=== PATIENT | female | born 1985 | race Caucasian/White ===

== ENCOUNTER 2017-03-19 01:03 | Inpatient (IN) | payer MEDICAID ==
[~2017-03-19] VITALS: Ht 160 cm; Wt 24.1 kg
[2017-03-19 04:15] LABS: BASOPHIL % 0.2 % (0-2); PLATELET COUNT 310 x10^3mcL (130-400)
[2017-03-19 04:37] LABS: CALCIUM 7.6 mg/dL (8.5-10.1); CARBON DIOXIDE 22.1 mmol/L (21-32); CHLORIDE SERUM 110 mmol/L (98-107); CREATININE SERUM 0.3 mg/dL (0.6-1.0); GFR1 > 60 mL/min; GLUCOSE SERUM 112 mg/dL (74-106); POTASSIUM SERUM 3.6 mmol/L (3.5-5.1); SODIUM SERUM 140 mmol/L (136-145)
[2017-03-19 04:43] LABS: ALKALINE PHOSPHATASE 93 U/L (46-116); ALT/SGPT 19 U/L (14-59); AST/SGOT 17 U/L (15-37); BILIRUBIN TOTAL 0.3 mg/dL (0.20-1.00); RED CELL DISTRIBUTION WIDTH 24.1 % (11.5-14.5)
[2017-03-19 04:45] LABS: TOTAL PROTEIN, SERUM 5.5 g/dL (6.4-8.2)
[2017-03-19 05:00] LABS: rbc morphology (normal/abnorm) ABNORMAL (NORMAL)
[2017-03-19 08:07] LABS: CHOLESTEROL/HDL RATIO 2.7; MAGNESIUM 2.1 mg/dL (1.8-2.4); PHOSPHOROUS 3.8 mg/dL (2.5-4.9)
[2017-03-19 08:14] VITALS: BP 90/61
[2017-03-19 08:21] LABS: T3 TOTAL 1.18 ng/mL
[2017-03-19 08:38] LABS: FREE T4 0.73 ng/dL (0.76-1.46); FREE THYROXINE INDEX 1.7 ug/dL (1.4-4.5); T4(THYROXINE) 5.5 ug/dL (4.7-13.3)
[2017-03-19 13:05] LABS: microscopic required? NO
[2017-03-19 13:11] VITALS: BP 113/70
[2017-03-19 13:14] LABS: UA SPECIFIC GRAVITY <=1.005 (1.005-1.035); urine erythrocyte NEGATIVE (NEGATIVE)
[2017-03-19 17:06] VITALS: BP 91/53
[2017-03-19 18:01] LABS: AMPHETAMINE QUAL UR NONE DETECTED (NEG <=1000)
[2017-03-19 19:49] VITALS: BP 87/56
[2017-03-20 06:04] VITALS: BP 102/71
[2017-03-20 06:51] LABS: BASOPHIL % 0.4 % (0-2); PLATELET COUNT 289 x10^3mcL (130-400)
[2017-03-20 06:59] LABS: RED CELL DISTRIBUTION WIDTH 24.4 % (11.5-14.5)
[2017-03-20 07:00] LABS: rbc morphology (normal/abnorm) ABNORMAL (NORMAL)
[2017-03-20 07:07] LABS: CALCIUM 8.5 mg/dL (8.5-10.1); CARBON DIOXIDE 22.9 mmol/L (21-32); CHLORIDE SERUM 110 mmol/L (98-107); CREATININE SERUM 0.3 mg/dL (0.6-1.0); GFR1 > 60 mL/min; GLUCOSE SERUM 76 mg/dL (74-106); POTASSIUM SERUM 3.9 mmol/L (3.5-5.1); SODIUM SERUM 143 mmol/L (136-145)
[2017-03-20 09:00] VITALS: BP 87/57
[2017-03-20 10:33] VITALS: Ht 160 cm; Wt 24.1 kg
[2017-03-20 14:10] VITALS: BP 93/67
[2017-03-20 17:49] VITALS: BP 92/61
[2017-03-20 20:58] VITALS: BP 98/61
[2017-03-21 04:53] VITALS: BP 103/68
[2017-03-21 07:05] LABS: CALCIUM 7.5 mg/dL (8.5-10.1); CARBON DIOXIDE 24.5 mmol/L (21-32); CHLORIDE SERUM 109 mmol/L (98-107); CREATININE SERUM 0.3 mg/dL (0.6-1.0); GFR1 > 60 mL/min; GLUCOSE SERUM 75 mg/dL (74-106); POTASSIUM SERUM 3.8 mmol/L (3.5-5.1); SODIUM SERUM 141 mmol/L (136-145)
[2017-03-21 07:08] LABS: BASOPHIL % 0.5 % (0-2); PLATELET COUNT 248 x10^3mcL (130-400)
[2017-03-21 07:09] LABS: RED CELL DISTRIBUTION WIDTH 23.4 % (11.5-14.5)
[2017-03-21 07:10] LABS: rbc morphology (normal/abnorm) ABNORMAL (NORMAL)
[2017-03-21 10:15] VITALS: BP 79/52
[2017-03-21 12:00] VITALS: BP 93/65
[2017-03-21 18:29] VITALS: BP 98/64
[2017-03-21 21:17] VITALS: BP 104/68
[2017-03-22 05:32] VITALS: BP 93/64
[2017-03-22 07:32] LABS: BASOPHIL % 0.4 % (0-2); PLATELET COUNT 259 x10^3mcL (130-400)
[2017-03-22 07:33] LABS: RED CELL DISTRIBUTION WIDTH 23.9 % (11.5-14.5)
[2017-03-22 07:34] LABS: rbc morphology (normal/abnorm) ABNORMAL (NORMAL)
[2017-03-22 07:44] LABS: CALCIUM 8.2 mg/dL (8.5-10.1); CARBON DIOXIDE 23.3 mmol/L (21-32); CHLORIDE SERUM 107 mmol/L (98-107); CREATININE SERUM 0.2 mg/dL (0.6-1.0); GFR1 > 60 mL/min; GLUCOSE SERUM 85 mg/dL (74-106); MAGNESIUM 2.2 mg/dL (1.8-2.4); PHOSPHOROUS 3.6 mg/dL (2.5-4.9); POTASSIUM SERUM 3.5 mmol/L (3.5-5.1); SODIUM SERUM 138 mmol/L (136-145)
[2017-03-22 09:26] VITALS: BP 94/59
[2017-03-22 18:45] VITALS: BP 105/73
[2017-03-22 21:30] VITALS: BP 108/73
[2017-03-23 04:40] VITALS: BP 106/76
[2017-03-23 07:26] LABS: BASOPHIL % 0.4 % (0-2); PLATELET COUNT 248 x10^3mcL (130-400)
[2017-03-23 07:33] LABS: CALCIUM 8.1 mg/dL (8.5-10.1); CARBON DIOXIDE 25.2 mmol/L (21-32); CHLORIDE SERUM 109 mmol/L (98-107); CREATININE SERUM 0.3 mg/dL (0.6-1.0); GFR1 > 60 mL/min; POTASSIUM SERUM 3.4 mmol/L (3.5-5.1); SODIUM SERUM 144 mmol/L (136-145)
[2017-03-23 07:39] LABS: GLUCOSE SERUM 48 mg/dL (74-106)
[2017-03-23 08:35] LABS: RED CELL DISTRIBUTION WIDTH 23.6 % (11.5-14.5)
[2017-03-23 10:06] VITALS: BP 102/71
[2017-03-23 10:59] LABS: rbc morphology (normal/abnorm) ABNORMAL (NORMAL)
[2017-03-23 16:19] VITALS: BP 90/65
[2017-03-23 21:35] VITALS: BP 99/67
[2017-03-24 05:45] VITALS: BP 111/79
[2017-03-24 07:38] LABS: PLATELET COUNT 219 x10^3mcL (130-400)
[2017-03-24 07:39] LABS: RED CELL DISTRIBUTION WIDTH 24.1 % (11.5-14.5)
[2017-03-24 08:03] LABS: CHLORIDE SERUM 109 mmol/L (98-107); CREATININE SERUM 0.3 mg/dL (0.6-1.0); GFR1 > 60 mL/min; GLUCOSE SERUM 90 mg/dL (74-106); MAGNESIUM 2.2 mg/dL (1.8-2.4); PHOSPHOROUS 3.4 mg/dL (2.5-4.9); POTASSIUM SERUM 3.4 mmol/L (3.5-5.1); SODIUM SERUM 142 mmol/L (136-145)
[2017-03-24 08:27] LABS: CALCIUM 7.8 mg/dL (8.5-10.1)
[2017-03-24 09:49] VITALS: BP 112/73
[2017-03-24 11:07] LABS: BAND NEUTROPHIL 3 % (0-10); BASOPHIL 0 % (0-2); MONOCYTE 7 % (0-7); SEGMENTED NEUTROPHILS 58 % (37-75)
[2017-03-24 11:08] LABS: rbc morphology (normal/abnorm) ABNORMAL (NORMAL)
[2017-03-24] MEDS ORDERED: REM15 PO (13:26)
[2017-03-24] MEDS ORDERED: SERTRALINE50 M1 PO (13:26)
[2017-03-24] MEDS ORDERED: NORCO1 TA2 PO (13:30)
[2017-03-24] MEDS ORDERED: DOCUSATE SOD100 M1 PO (13:32)
[2017-03-24 17:20] VITALS: BP 105/77
[2017-03-24 18:22] VITALS: BP 105/77
== END 2017-03-24 20:38 | disposition home or self-care (01) | DRG 203 ==
LOC: ED 01:03 → DU 06:04 → MU 03-22 06:30
PROVIDERS: Emergency Medicine; Family Medicine; Family Medicine Sports Medicine; Internal Medicine
PROC: 0DB78ZX Excision of Stomach, Pylorus, Via Natural or Artificial Opening Endoscopic, Diagnostic (ICD-10-PCS; 2017-03-21)
PROC: 0DB98ZX Excision of Duodenum, Via Natural or Artificial Opening Endoscopic, Diagnostic (ICD-10-PCS; principal; 2017-03-21 09:00)
PROC: 05HB33Z Insertion of Infusion Device into Right Basilic Vein, Percutaneous Approach (ICD-10-PCS; 2017-03-24)
PROC: B54MZZA Ultrasonography of Right Upper Extremity Veins, Guidance (ICD-10-PCS; 2017-03-24)
DX: M94.0 Chondrocostal junction syndrome [Tietze] (principal); N17.0 Acute kidney failure with tubular necrosis; E43 Unspecified severe protein-calorie malnutrition; K20.8 Other esophagitis; F50.00 Anorexia nervosa, unspecified; Z68.1 Body mass index [BMI] 19.9 or less, adult; M62.50 Muscle wasting and atrophy, not elsewhere classified, unspecified site; G89.29 Other chronic pain; F41.1 Generalized anxiety disorder; F41.0 Panic disorder [episodic paroxysmal anxiety]; E78.1 Pure hyperglyceridemia; D72.819 Decreased white blood cell count, unspecified; D64.9 Anemia, unspecified
CPT/HCPCS: 43235; 83880; 84439; 97110-GP; 97530-GP; C1751; J1200; J1610; J1642; J1885; J2001; J2060; J2250; J2270; J2310; J2405; J3010; J3490; J7030; J7040; J7042; J7050; Q0092; Q9966; Q9967

== ENCOUNTER 2017-04-01 18:33 | Emergency (ER) | payer MEDICAID ==
[~2017-04-01] VITALS: Ht 160 cm; Wt 20.9 kg
[~2017-04-01 18:33] MED LIST: DOCUSATE SOD100 M1 PO; NORCO1 TA2 PO; REM15 PO; SERTRALINE50 M1 PO
[2017-04-01 18:41] VITALS: Ht 160 cm; Wt 20.9 kg
[2017-04-01 22:28] LABS: PLATELET COUNT 396 x10^3mcL (130-400)
[2017-04-01 22:48] LABS: CALCIUM 8.6 mg/dL (8.5-10.1); CARBON DIOXIDE 23.1 mmol/L (21-32); CHLORIDE SERUM 108 mmol/L (98-107); CREATININE SERUM 0.2 mg/dL (0.6-1.0); GFR1 > 60 mL/min; GLUCOSE SERUM 92 mg/dL (74-106); POTASSIUM SERUM 4.8 mmol/L (3.5-5.1); SODIUM SERUM 142 mmol/L (136-145)
[2017-04-01 22:53] LABS: ALBUMIN 2.4 g/dL (3.4-5.0); ALKALINE PHOSPHATASE 128 U/L (46-116); ALT/SGPT 21 U/L (14-59); AST/SGOT 47 U/L (15-37); BILIRUBIN TOTAL 0.39 mg/dL (0.20-1.00); TOTAL PROTEIN, SERUM 6.7 g/dL (6.4-8.2)
[2017-04-01 23:12] LABS: RED CELL DISTRIBUTION WIDTH 22.3 % (11.5-14.5)
[2017-04-01 23:29] LABS: BAND NEUTROPHIL 10 % (0-10); SEGMENTED NEUTROPHILS 75 % (37-75)
[2017-04-01 23:30] LABS: MONOCYTE 5 % (0-7); rbc morphology (normal/abnorm) ABNORMAL (NORMAL)
[2017-04-02 00:12] LABS: UA SPECIFIC GRAVITY >=1.030 (1.005-1.035); microscopic required? YES; urine erythrocyte TRACE (NEGATIVE)
[2017-04-02 02:31] VITALS: BP 110/75
== END 2017-04-02 02:31 | disposition home or self-care (01) ==
LOC: ED 18:33
PROVIDERS: Emergency Medicine
DX: R10.13 Epigastric pain (principal); N39.0 Urinary tract infection, site not specified; R64 Cachexia; E46 Unspecified protein-calorie malnutrition
CPT/HCPCS: J0696; J1885; J2405; J7060

== ENCOUNTER 2018-07-26 22:52 | Emergency (ER) | payer BC ==
[~2018-07-26] VITALS: Ht 160 cm; Wt 26.4 kg
[2018-07-26 22:57] VITALS: Ht 160 cm; Wt 26.4 kg
[2018-07-27 00:16] LABS: CALCIUM 8.1 mg/dL (8.5-10.1); CARBON DIOXIDE 22.3 mmol/L (21-32); CHLORIDE SERUM 105 mmol/L (98-107); CREATININE SERUM 0.4 mg/dL (0.6-1.0); GFR1 > 60 mL/min; GLUCOSE SERUM 82 mg/dL (74-106); POTASSIUM SERUM 3.4 mmol/L (3.5-5.1); SODIUM SERUM 140 mmol/L (136-145)
[2018-07-27 00:21] LABS: ALKALINE PHOSPHATASE 148 U/L (46-116); ALT/SGPT 26 U/L (14-59); AST/SGOT 27 U/L (15-37); BILIRUBIN TOTAL 0.4 mg/dL (0.20-1.00); LIPASE 128 IU/L (73-393); TOTAL PROTEIN, SERUM 7.8 g/dL (6.4-8.2)
[2018-07-27 00:24] LABS: ALBUMIN 2.6 g/dL (3.4-5.0)
[2018-07-27 00:40] LABS: BASOPHIL % 0.5 % (0-2); PLATELET COUNT 385 x10^3mcL (130-400)
[2018-07-27 00:43] LABS: RED CELL DISTRIBUTION WIDTH 22.8 % (11.5-14.5)
[2018-07-27 01:52] VITALS: BP 96/63
== END 2018-07-27 01:52 | disposition home or self-care (01) ==
LOC: ED 22:52
PROVIDERS: Emergency Medicine
DX: K52.9 Noninfective gastroenteritis and colitis, unspecified (principal); R11.2 Nausea with vomiting, unspecified; G89.29 Other chronic pain; F32.9 Major depressive disorder, single episode, unspecified
CPT/HCPCS: J2405; J7030

== ENCOUNTER 2019-01-14 21:47 | Inpatient (IN) | payer BC ==
[~2019-01-14] VITALS: Ht 160 cm; Wt 27.3 kg
[2019-01-14 21:51] VITALS: Ht 160 cm; Wt 27.3 kg
--- NOTE | 2019-01-14 23:01 | NUR ---
PT CAME TO ED CO GENERALIZED ABD PAIN ACCOMPANIED BY RECTAL BLEEDING. PT STS THE PAIN STARTED ABOUT 1 WEEKS AGO. PT STS SHE IS ALSO FEELING DIZZY. PT STS SHE HAS PAIN IN ALL FOUR QUADRANTS. BOWEL SOUNDS ACTIVE. FAMILY AT BEDSIDE. NO S/S OF DISTRESS. RESP E/U. WILL CONTINUE TO MONITOR
[2019-01-14 23:18] LABS: CALCIUM 7.3 mg/dL (8.5-10.1); CARBON DIOXIDE 27.3 mmol/L (21-32); CHLORIDE SERUM 109 mmol/L (98-107); CREATININE SERUM 0.4 mg/dL (0.6-1.0); GFR1 > 60 mL/min; GLUCOSE SERUM 94 mg/dL (74-106); POTASSIUM SERUM 3.3 mmol/L (3.5-5.1); SODIUM SERUM 144 mmol/L (136-145)
[2019-01-14 23:25] LABS: ALBUMIN 2.3 g/dL (3.4-5.0); ALKALINE PHOSPHATASE 135 U/L (46-116); ALT/SGPT 26 U/L (14-59); AMYLASE 55 U/L (25-115); AST/SGOT 23 U/L (15-37); BILIRUBIN TOTAL 0.3 mg/dL (0.20-1.00); LIPASE 149 IU/L (73-393); MAGNESIUM 1.8 mg/dL (1.8-2.4); TOTAL PROTEIN, SERUM 6.5 g/dL (6.4-8.2)
[2019-01-14 23:34] LABS: BASOPHIL % 0.3 % (0-2); PLATELET COUNT 257 x10^3mcL (130-400)
[2019-01-14 23:37] LABS: RED CELL DISTRIBUTION WIDTH 22.7 % (11.5-14.5)
[2019-01-14 23:40] LABS: T4(THYROXINE) 6.2 ug/dL (4.7-13.3)
[2019-01-14 23:46] LABS: rbc morphology (normal/abnorm) ABNORMAL (NORMAL)
[2019-01-15] VITALS (9 sets, daily range): BP systolic 93–116; BP diastolic 61–78
[2019-01-15 01:15] LABS: microscopic required? NO
[2019-01-15 01:26] LABS: UA SPECIFIC GRAVITY 1.015 (1.005-1.035); urine erythrocyte NEGATIVE (NEGATIVE)
[2019-01-15 01:35] LABS: AMPHETAMINE QUAL UR NONE DETECTED (See below)
--- NOTE | 2019-01-15 02:02 | NUR ---
PER AMIE, OK TO DO BLOOD TRANSFUSION UPSTAIRS.
--- NOTE | 2019-01-15 02:03 | NUR ---
PT AMBULATED TO THE RESTROOM.
--- NOTE | 2019-01-15 02:19 | NUR ---
PT TRANSFER TO TELE FLOOR ACCOMPANIED BY NURSE AND EMT. NO S/S OF DISTRESS. RESP E/U. PT CONNECTED TO MONITOR DURING TRANSFER. PER TRANSFER NURSE, RN AT BEDSIDE TO ASSUME CARE. IV SITE PATENT, NO S/S OF INFILTRATION.
--- NOTE | 2019-01-15 02:19 | NUR ---
RECEIVED PT FROM ED VIA [facility] ACCOMPANIED BY NURSE. PT ABLE TO AMBULATE FROM [place] TO BED WITH STRONG AND STEADY GAIT. C/O ABD PAIN, N/V, AND YELLOW STOOL WITH STREAKS OF BLOOD. ABD SOFT AND FLAT WITH HYPERACTIVE BOWEL SOUNDS. AA/OX4, ABLE TO MAKE NEEDS KNOWN, SPEECH CLEAR AND APPROPRIATE. NSR TO TELE #20, HR 61, DENIES CP OR PRESSURE. PULSES PALPABLE AND EQUAL THROUGHOUT, NO EDEMA. BREATHING ON RA, EVEN AND UNLABORED, NO SOB OR DYSPNEA, LUNGS CTA, O2 SAT 97% VOIDS URINE FREELY WITH BRP. MILD GENERALIZED WEAKNESS, ABLE TO REPOSITION SELF IN BED. SKIN CDI. ORIENTED PT TO ROOM AND CALL LIGHT. COMFORT AND SAFETY MEASURES IMPLEMENTED. CALL LIGHT WITHIN REACH. WILL CONTINUE TO MONITOR
--- NOTE | 2019-01-15 02:20 | NUR ---
BLOOD TRANSFUSION CONSENT SIGNED AND WITNESSED, PLACED IN CHART. IV TO LAC #20G, PATENT AND INTACT.
--- NOTE | 2019-01-15 03:05 | NUR ---
PRE BLOOD TRANSFUSION MEDICATION ADMINISTERED ORDERED. BLOOD TRANSFUSION STARTED, PRE TRANSFUSION VITALS STABLE AND INPUTTED. BLOOD TRANSFUSION VERIFIED BY JD EDWARDS AND DOMENICO Garza RN. INFUSING VIA LAC #20G AT 50 ML/HR, DRY, PATENT, INTACT, AND INFUSING WELL WITH NO S&S PHLEBITIS OR INFILTRATION NOTED. PT EDUCATED ON S&S ON TRANSFUSION REACTION AND TO CALL FOR RN IMMEDIATELY, PT AGREED AND VERBALIZED UNDERSTANDING. CALL LIGHT WITHIN REACH. WILL CONTINUE TO MONITOR
--- NOTE | 2019-01-15 03:25 | NUR ---
15 MIN AFTER BLOOD TRANSFUSION STARTED, VITAL SIGNS STABLE AND INPUTTED. INCREASED INFUSION RATE TO 130 ML/HR, PT TOLERATING WELL. IV TO LAC PATENT AND INTACT, NO S&S PHLEBITIS OR INFILTRATION NOTED. CALL LIGHT WITHIN REACH. WILL CONTINUE TO MONITOR
[2019-01-15 05:13] LABS: TOTAL IRON BINDING CAPACITY 394 ug/dL (250-450)
[2019-01-15 05:14] LABS: RED BLOOD CELLS 3.59 M/mm3 (4.10-5.10)
[2019-01-15 05:18] LABS: IRON 9 ug/dL (50-170)
--- NOTE | 2019-01-15 05:45 | NUR ---
FIRST UNIT PRBC INFUSION DONE, VITAL SIGNS STABLE AND INPUTTED. NO ADVERSE REACTION TO TRANSFUSION NOTED, PT TOLERATED WELL. NO ACUTE DISTRESS OBSERVED AT THIS TIME, PT LAYING IN BED. BREATHING EVEN AND UNLABORED. CALL LIGHT WITHIN REACH. WILL CONTINUE TO MONITOR
--- NOTE | 2019-01-15 06:00 | NUR ---
PT'S LAC SALINE LOCKED AT THIS TIME. BROUGHT DOWN VIA WHEELCHAIR FOR SCHEDULED CT ABD PELVIS. NO ACUTE DISTRESS OBSERVED AT THIS TIME. WILL ANTICIPATE
--- NOTE | 2019-01-15 06:11 | NUR ---
PT BACK FROM CT AT THIS TIME. NO DISTRESS OBSERVED. BACK IN BED WITHOUT INCIDENT
--- NOTE | 2019-01-15 06:30 | NUR ---
SECOND UNIT OF PRBC STARTED ORDERED. INFUSING VIA IV TO LAC, PATENT AND INTACT, INFUSING WELL, NO S&S PHLEBITIS OR FILTRATION NOTED. PT REINFORCED TO MAKE NURSE AWARE IMMEDIATELY IF EXPERIENCING S&S ON TRANSFUSION REACTION, PT AGREED AND VERBALIZED UNDERSTANDING. CALL LIGHT WITHIN REACH. WILL CONTINUE TO MONITOR
--- NOTE | 2019-01-15 06:44 | NUR ---
NO ACUTE DISTRESS OBSERVED AT THIS TIME, PT LAYING IN BED BREATHING EVEN AND UNLABORED. COMFORT AND SAFETY MEASURES MAINTAINED. ALL NEEDS ASSESSED AND ATTENDED TO. CALL LIGHT WITHIN REACH. WILL CONTINUE TO MONITOR AND ENDORSE CARE TO DAY SHIFT NURSE
--- NOTE | 2019-01-15 06:45 | NUR ---
15 MINUTES AFTER SECOND TRANSFUSION VITAL SIGNS STABLE AND INPUTTED
--- NOTE | 2019-01-15 07:30 | NUR ---
PT IS AAOX4. TELE [address] READING NSR. IV CATH WITH PRBC RUNNING TO LAC. SITE WNL. PT HAS NO C/O FLANK PAIN, FEVER, CHILLS, OR DIFFICULTIES BREATHING. PT DENIES PAIN AND DISCOMFORT AT THIS TIME. PT NPO PENDING CONSULT WITH DR. DELGADO. CALL LIGHT WITHIN REACH. BED IN LOWEST POSITION. FALL PROTOCOL IN PLACE.
--- NOTE | 2019-01-15 09:33 | NUR ---
TYLENOL 650MG PO GIVEN FOR SHARP STOMACH PAIN 08/05. SCHEDULED MEDS GIVEN WITH SMALL SIP OF WATER. TOLERATED WELL. PT ENCOURAGED TO TURN AND REPOSITION IN BED Q2 HOURS AND PRN. PT VERBALIZED UNDERSTANDING. CALL LIGHT WITHIN REACH. BED ALARM ON.
--- NOTE | 2019-01-15 09:50 | NUR ---
BLOOD TRANSFUSION COMPLETED. PT DENIES S/S OF PALPITATIONS, FLANK PAIN, SOB, DIFFICULTY BREATHING, FEVER AND CHILLS. NO S/S OF FLUID OVERLOAD. VS: T 98.7F, HR 82, RR 20, B/P 102/68, O2 SAT AT 99% ON R/A. WILL CONTINUE TO MONITOR.
--- NOTE | 2019-01-15 12:00 | NUR ---
PT IS MOANING DUE TO CRAMPING ABDOMINAL PAIN 11/05. PT REFUSED TO TAKE HER PRN NORCO STATING SHE CAN NOT TOLERATE IT DUE TO STOMACH UPSET. PT DOES NOT HAVE IVP PAIN MEDICATION PRESCRIBED. REPORTED TO DR. SKY. RECEIVED ORDER FOR M.O.M. 30ML PO FOR GI UPSET. MEDICATION GIVEN AND PROMBTLY VOMITED. WARM COMPRESS APPLIED TO ABDOMEN. PT PROMPTLY REMOVED. PT POSITIONED FOR COMFORT BUT NOW IS SITTING UP AT BEDSIDE, MOANING, BUT STILL REFUSING TO TAKE THE PRN NORCO. WILL CONTINUE TO MONITOR.
--- NOTE | 2019-01-15 12:08 | NUR ---
NORCO 7.5MG PO GIVEN FOR CRAMPING STOMACH PAIN 11/05. RESP EVEN AND UNLABORED. WILL CONTINUE TO MONITOR.
[2019-01-15 12:10] LABS: BASOPHIL % 0.4 % (0-2); PLATELET COUNT 231 x10^3mcL (130-400)
[2019-01-15 12:20] LABS: CALCIUM 7.7 mg/dL (8.5-10.1); CARBON DIOXIDE 20.6 mmol/L (21-32); CHLORIDE SERUM 109 mmol/L (98-107); CREATININE SERUM 0.4 mg/dL (0.6-1.0); GFR1 > 60 mL/min; GLUCOSE SERUM 112 mg/dL (74-106); MAGNESIUM 1.9 mg/dL (1.8-2.4); SODIUM SERUM 140 mmol/L (136-145)
[2019-01-15 12:30] LABS: RED CELL DISTRIBUTION WIDTH 27.3 % (11.5-14.5)
--- NOTE | 2019-01-15 13:28 | NUR ---
RECEIVED ORDER FROM DR. SKY, D/C H/H LAB FOR TODAY AT 12OO, DUPLICATE ORDER. ORDER NOTED AND CARRIED OUT.
--- NOTE | 2019-01-15 13:45 | NUR ---
SPOKE WITH DR. JOSE DANIEL BASHIR PT'S POC. PT WILL START TPN X2 DAYS. FAMILY WILL BE CONTACTED PER PT'S PSYCHO SOCIAL BACKGROUND, HOSPICE AND PEG TUBE PLACEMENT WILL BE CONSIDERED. RECEIVED ORDER TO D/C NORCO. NEW ORDER RECEIVED FOR MORPHINE 1MG IVP Q4 HOURS PRN FOR MODERATE TO SEVERE PAIN. ORDERS NOTED AND CARRIED OUT. PT MADE AWARE.
[2019-01-15 13:52] LABS: rbc morphology (normal/abnorm) ABNORMAL (NORMAL)
[2019-01-15 13:54] LABS: ovalocyte/elliptocyte 1+
--- NOTE | 2019-01-15 15:50 | NUR ---
MORPHINE 1MG IVP GIVEN FOR CRAMPING STOMACH PAIN 11/05. RESP EVEN AND UNLABORED. NO RESP DISTRESSN NOTED. PT WILL BE RECEIVING TPN FOR SUPPLEMENTAL NUTRITION. PT EDUCATED ON BENEFITS AND S/E OF TPN. PT VERBALIZED UNDERSTANDING. NEW IV CATH STATED TO LFA 22G ON SECOND ATTEMPT. SITE WNL. COVERED WITH OCCLUSIVE DRESSING. WILL CONTINUE TO MONITOR.
--- NOTE | 2019-01-15 17:44 | NUR ---
TPN FEEDING HAS NOT ARRIVED. BASELINE BLOOD SUGAR 7O. PT EATING DINNER AT THIS TIME. PT DENIES PAIN. PT EDUCATED ON TPN INDICATIONS AND S/E. PT EDUCATED ON ACCU CKS, THEIR FREQUENCY AND INDICATION. PT VERBALIZED UNDERSTANDING. TEACHING WILL NEED TO BE REINFORCED. CALL LIGHT WITHIN REACH.
[2019-01-15 17:53] LABS: CALCIUM 7.7 mg/dL (8.5-10.1); CHLORIDE SERUM 110 mmol/L (98-107); CREATININE SERUM 0.5 mg/dL (0.6-1.0); GFR1 > 60 mL/min; GLUCOSE SERUM 84 mg/dL (74-106); MAGNESIUM 1.9 mg/dL (1.8-2.4); PHOSPHOROUS 3.1 mg/dL (2.5-4.9); POTASSIUM SERUM 3.4 mmol/L (3.5-5.1); SODIUM SERUM 146 mmol/L (136-145)
--- NOTE | 2019-01-15 18:25 | NUR ---
PT IS AAOX4. RESP EVEN AND UNLABORED. PT AWAITING TPN WHICH PHARMACY STATES WILL BE READY AT 2100. TELE [address] READING NSR. IV CATH TO LACE AND IV CATH TO LFA PATENT, SITES WNL. NO S/S OF INFECTION NOTED. PT ENCOURAGED TO DRINK MORE WATER, PT ONLY VOIDED ONE TIME TODAY. PT VERBALIZED UNDERSTANDING. PT DENIES PAIN AT THIS TIME. CALL LIGHT WITHIN REACH. BED IN LOWEST POSTION. FALL PROTOCOL FOLLOWED.
--- NOTE | 2019-01-15 19:15 | NUR ---
RECEIVED PT LAYING IN BED, NO ACUTE DISTRESS OBSERVED, DENIES PAIN AT THIS TIME. AA/OX4, ABLE TO MAKE NEEDS KNOWN, SPEECH CLEAR AND APPROPRIATE. MULTIPLE MISSING AND ERODED TEETH NOTED. NSR TO TELE #20, NO CP, HR 71. PULSES PRESENT AND EQUAL THROUGHOUT, NO EDEMA, S/P INFUSION OF 2 UNITS PRBC EARLIER TODAY. BREATHING ON RA, EVEN AND UNLABORED, NO SOB OR DYSPNEA OBSERVED. ABD SOFT AND FLAT WITH ACTIVE BOWEL SOUNDS, DENIES N/V/D. C/O INTERMITTENT ABD PAIN, WILL MEDICATE PRN. PT WITH POOR APPETITE, HX OF ANOREXIA NERVOSA. TPN TO START TONIGHT ORDERED. VOIDS URINE FREELY WITH BRP. MILD GENERALIZED WEAKNESS, AMBULATORY AND ABLE TO REPOSITION SELF IN BED. IV SITES X2 TO LAC AND LFA, DRY, PATENT, INTACT, S/L, NO S&S PHLEBITIS OR INFILTRATION NOTED. COMFORT AND SAFETY MEASURES IN PLACE. ALL NEEDS ASSESSED AND ATTENDED TO. CALL LIGHT WITHIN REACH. WILL CONTINUE TO MONITOR
--- NOTE | 2019-01-15 20:30 | NUR ---
PER PHARMACIST KADEN MONK IV TO RUN AND FINISH BEFORE RUNNING TPN. WILL CARRY OUT APPROPRIATELY
--- NOTE | 2019-01-15 23:30 | NUR ---
PPN STARTED ORDERED, INFUSING AT 80 ML/HR VIA LAC PERIPHERAL IV, #20G, DRY, PATENT, INTACT, AND INFUSING WELL WITH NO S&S PLEBITIS OR INFILTRATION NOTED. PT EDUCATED FOR NEED AND BENEFIT OF PPN, GIVEN A CHANCE TO ASK QUESTIONS. ALL NEEDS ADDRESSED. NO ACUTE DISTRESS OBSERVED. CALL LIGHT WITHIN REACH. WILL CONTINUE TO MONITOR
[2019-01-16 05:57] VITALS: BP 107/73
--- NOTE | 2019-01-16 06:26 | NUR ---
NO OTHER SIGNIFICANT CHANGES TO REPORT, PT COMPLIED WITH NURSING CARE THROUGHOUT THE SHIFT WITH NO ACUTE EVENTS OVERNIGHT. PPN REMAINS INFUSING TO LAC AT 80 ML/HR ORDERED, PATENT AND INTACT WITHOUT S&S PHLEBITIS OR INFILTRATION. NO ACUTE DISTRESS OBSERVED AT THIS TIME, PT LAYING IN BED, BREATHING EVEN AND UNLABORED. COMFORT AND SAFETY MEASURES MAINTAINED. ALL NEEDS ASSESSED AND ATTENDED TO. CALL LIGHT WITHIN REACH. WILL CONTINUE TO MONITOR AND ENDORSE CARE TO DAY SHIFT NURSE
[2019-01-16 06:44] LABS: CALCIUM 7.5 mg/dL (8.5-10.1); CARBON DIOXIDE 23.9 mmol/L (21-32); CREATININE SERUM 0.4 mg/dL (0.6-1.0); GFR1 > 60 mL/min; GLUCOSE SERUM 116 mg/dL (74-106); PHOSPHOROUS 3.2 mg/dL (2.5-4.9)
[2019-01-16 06:50] LABS: PLATELET COUNT 216 x10^3mcL (130-400)
--- NOTE | 2019-01-16 07:05 | NUR ---
RECEIVED REPORT FROM AMIE RN AT BEDSIDE, PT IN BED IN NO ACUTE DISTRESS
[2019-01-16 07:15] LABS: RED CELL DISTRIBUTION WIDTH 26.9 % (11.5-14.5)
[2019-01-16 07:16] LABS: rbc morphology (normal/abnorm) ABNORMAL (NORMAL)
[2019-01-16 07:17] LABS: ovalocyte/elliptocyte 1+
[2019-01-16 07:45] LABS: CHLORIDE SERUM 109 mmol/L (98-107); POTASSIUM SERUM 3.3 mmol/L (3.5-5.1); SODIUM SERUM 142 mmol/L (136-145)
--- NOTE | 2019-01-16 07:51 | NUR ---
PT RESTING IN BED, IN NO ACUTE DISTRESS, VERBAL, GEMA TO MAKE NEEDS KNOWN, CALM AND COOPERATIVE, PERRLA, NO REDNESS/DRAINAGE, NO FACIAL DRROP/SLURRED SPEECH, RESP EVEN, RA, LUNG CTA, O2 SAT 97%, TELE #20, NSR, HR-84, FALL RISK PRECAUTION, DENIED CP/LU/PAIN/PALPITATION, DENIED N/V/D, ABD FLAT AND NON-TENDER TO TOUCH, BS ACTIVE X 4, CAP REFILL < 3S, PALP PULSES, SKIN C/D/W, SEE SKIN ASSESSMENT, IV PATENT AND INFUSING WELL, DRESSING CDI, PPN INFUSING WELL AT 80ML/HR, TOLERATED WELL, AMBULATORY, CONTINENT, REG DIET, POOR APPETITE STILL, ALL NEEDS AT THIS TIME, SAFETY PROTOCOL FOLLOWED, CONTINUE TO MONITOR
[2019-01-16 08:54] VITALS: BP 110/71
--- NOTE | 2019-01-16 09:23 | NUR ---
AM MEDS GIVEN PER MD ORDER VIA EMAR, TOLERATED WELL, NO ASE NOTED AT THIS TIME, EDUCATED PT R/T MED, ASE AND MONITOR, VERBALLY UNDERSTANDING, NO FURTHER CONCERNS NEEDED WHEN ASKED AT THIS TIME, CONTINUE TO MONITOR
[2019-01-16 12:12] VITALS: BP 106/68
--- NOTE | 2019-01-16 14:05 | NUR ---
PT SEEN BY DR PORTILLO, DR PORTILLO MADE AWARE OF PT TODAY POTASSIUM LEVEL, NEW ORDER OBTAINED, PT MADE AWARE, CONTINUE TO MONITOR
[2019-01-16 16:37] VITALS: BP 104/63
--- NOTE | 2019-01-16 17:02 | NUR ---
PT SLEEPING IN BED, IN NO APPARENT ACUTE DISTRESS, IV INFUSING WELL, DRESSING CDI, RESP EVEN, NO SOB/COUGH, ALL NEEDS ADDRESSED AT THIS TIME, SAFET PROTOCOL FOLLOWED, CONTINUE TO MONITOR
--- NOTE | 2019-01-16 18:11 | NUR ---
PT RESTING IN BED, IN NO ACUTE DISTRESS, TELE, IV PATENT AND INFUSING WELL, DRESSING CDI, ALL NEEDS ADDRESSED AT THIS TIME, SAFETY PROTOCOL MAINTAINED, WILL ENDORSE TO ONCOMING RN
--- NOTE | 2019-01-16 19:30 | NUR ---
RECEIVED PT IN BED AWAKE, ALERT,ORIENTED X4. NO SOB NOTED. BOWEL SOUNDS ACTIVE. PT C/O ABDL PAIN 01/05. NO C/O N/V AT THIS TIME. W/ PPN INFUSING AT 80 CC/HR VIA LTAC. W/ HL TO LTFA. CALL LIGHT W/IN REACH.
--- NOTE | 2019-01-16 20:02 | NUR ---
PT C/O ABDL PAIN 10/10 LEVEL AND REQUESTING FOR MED. MORPHINE SULFATE 1 MG IV GIVEN ( HO=[id number]/63)
--- NOTE | 2019-01-16 21:07 | NUR ---
BOWEL PREP STARTED ORDERED.
[2019-01-16 21:29] VITALS: BP 100/67
--- NOTE | 2019-01-17 05:08 | NUR ---
PT SLEPT ON AND OFF. SHE WAS MEDICATED FOR PAIN X1. PT ON BOWEL PREP AND HAD SEVERAL WATERY BM. PT FOR COLONOSCOPY TODAY ORDERED. PPN INFUSING AT 80 CC/HR VIA LTAC. ALL NEEDS ATTENDED TO.
[2019-01-17 05:31] VITALS: BP 94/65
[2019-01-17 06:42] LABS: CALCIUM 8.3 mg/dL (8.5-10.1); CARBON DIOXIDE 31.1 mmol/L (21-32); CHLORIDE SERUM 109 mmol/L (98-107); CREATININE SERUM 0.4 mg/dL (0.6-1.0); GFR1 > 60 mL/min; GLUCOSE SERUM 115 mg/dL (74-106); PHOSPHOROUS 3.5 mg/dL (2.5-4.9); POTASSIUM SERUM 4.2 mmol/L (3.5-5.1); SODIUM SERUM 146 mmol/L (136-145)
--- NOTE | 2019-01-17 07:35 | NUR ---
PATIENT RESTING IN BED COMFORATBLY, PATIENT DENIES PAIN. NO ACUTE DISTRESS NOTED. DENIES SOB, ON ROOM AIR. PATIENT NPO, AND AWARE OF MORNING PROCEDURE FOR EDG & COLONOSCOPY. TELE MONITOR IN PLACE. PATIENT ABLE TO TRANSFER SELF, GENERALIZED WEAKNESS NOTED. PPN INFUSING TO LAC AT 80ML/HR, & IV TO LFA SALINE LOCK, NO S/S OF INFILTRATION. PATIENT DENIES ABDOMINAL PAIN, NO BLOODY STOOLS NOTED AT THIS TIME. CALL LIGHT WITHIN REACH, BED IN LOW POSITION. WILL CONTINUE TO MONITOR.
--- NOTE | 2019-01-17 07:55 | NUR ---
REPORT GIVEN TO GI LAB, GI LAB AWARE PATIENT IS ON PPN AT 80ML/HR TO LAC, ACCU CHECKS Q6H. CONSENT FORM SIGN, CHECKLIST DONE.
[2019-01-17 08:28] VITALS: BP 97/62
--- NOTE | 2019-01-17 08:30 | NUR ---
PATIENT WENT DOWN FOR EGD/COLONOSCOPY. FERRLECIT IV GIVEN TO LFA AT 110ML/HR, IV SITE CDI & PATENT, GI LAB AWARE FERRLECIT STARTED. WET POUR MIXER AWARE PATIENT WENT DOWN FOR EGD.
[2019-01-17 09:17] LABS: PLATELET COUNT 285 x10^3mcL (130-400); RED CELL DISTRIBUTION WIDTH 28.1 % (11.5-14.5)
[2019-01-17 09:18] LABS: BASOPHIL % 0 % (0-2)
[2019-01-17 09:20] LABS: rbc morphology (normal/abnorm) ABNORMAL (NORMAL)
--- NOTE | 2019-01-17 10:51 | NUR ---
PATIENT ARRIVED UP TO THE FLOOR FROM GI LAB, PPN WAS STOPPED DOWNSTAIRS IN GI LAB, FERRLECIT STILL INFUSING TO LFA.
--- NOTE | 2019-01-17 11:29 | NUR ---
ACCU CHECK PROTOCOL DISCONTINUED, VERIFIED WITH DR DELGADO THAT PATIENT ACCU CHECKS WERE D/C. DR. DELGADO STATED PATIENT DID NOT NEED ACCU CHECK PROTOCOL AT THIS TIME. NEW IV WAS INSERTED TO RIGHT FOREARM X1 ATTEMPT, 20G. PATIENT PPN INFUSING TO RFA AT 80ML/HR. CALL LIGHT WITHIN REACH, BED IN LOW POSITION, WILL CONTINUE TO MONITOR.
--- NOTE | 2019-01-17 14:37 | NUR ---
Initial Nutrition Assessment: 216T/B PATTI CARRANZA IA HR Dx: Anemia, failure to thrive PMHx: Anorexia nervosa, Anemia, Depression PSHx: G tube in 2014 and removed in 2016 Labs: NA 146H, BG 115H, CREAT 0.4L, ALB 2.3L, MG 3.0H, CA 8.3L Meds: D 10%, D 50%, folic acid, Humulin, milk of magnesia, miralax, morphine, zofran Diet: TPN D 10%, AA 4.25% @ 80 ml/hr, volume 2000 ml PO intake since admission: (01/16) dinner 30%, lunch 20%, breakfast 40% (01/15) dinner 80% Ht: 160.02cm (63") Wt: 27.2 kg (60#) BMI: 10.7 kg/m2 Bed scale: unable to access IBW: 115# (52 kg) %IBW: 52 UBW: 60# Age: 33/F Food Allergies: NKFA Skin: intact Hay: 18 Edema: none GI: Last BM: 01/15 Per H&P, Pt is a 33 years old female with PMH of Anorexia nervosa, Anemia, Depression and Anxiety who brought to ED due to acute abdominal pain started 5 days ago. Patient reports that she in not feeling well and her abdominal pain progressively worsening during the last [address] Note (01/17): Patient is severely malnourished and emaciated. Weighs only 60#. Patient said that she does not have any N/V at the moment. Patient appeared tired and weak while talking. Patient has Anorexia nervosa. Per Dr. Ramirez, EGD colonoscopy does not show any pathology and he says that her condition is due to psycho-social issue. Dr. Ramirez said that patient is refusing G tube. FNS received consult for 'anorexia nervosa, wt 27 kg' on 01/16. Currently patient is receiving PPN but Dr. Ramirez said that her lobsterman feeding plan is yet to be decided. Patient was asked to share her food preferences or things that she will like to eat. Patient said she likes orange juice. Patient refused to drink ONS Ensure. Problem with: N/V/D/C: none at this time Problems with: Chewing: Swallowing: none Current appetite: poor Recent wt change: none %wt change: n/a Vitamin/Supplement use: none, currently receiving MVI through PPN Special diet at home: regular Physical activity: sedentary Nutrition education given: PO was encouraged. Patient is anorexic Food-drug interactions: none Education given: n/a Estimated Nutritional Needs Based on current body weight (27.2 kg) Energy: 0765-1193 kcal/day (37-40 kcal/kg for gradual weight gain) Protein: 33-38 g/day (1.2-1.4 g/kg for gradual protein repletion) Fluid: 6985-2252 mL/day (1 mL/kcal) Nutrition Diagnosis: 1. Malnutrition related to anorexia nervosa as evidenced by BMI 10.7 kg/m2 Intervention 1. Recommend continuing PPN D 10%, AA 4.25% @ 80 ml/hr. This provides 980 kcal and 80g protein. 2. Recommend continuing regular diet. Will continue to monitor Monitor/Evaluate Goal: PO intake at least 75% of estimated needs Monitor: PO intake, Labs, GI function F/U in 2-3 days as high risk
--- NOTE | 2019-01-17 16:41 | NUR ---
PATIENT RESTING IN BED COMFORTABLY, NO ACUTE DISTRESS NOTED. PATIENT DENIES PAIN. ENCOURAGE PATIENT TO TRY AND EAT SOMETHING, PROVIDED PATIENT WITH SANDWICH PER PT REQUEST. ALL NEEDS MET AT THIS TIME, WILL CONTINUE TO MONITOR PATIENT. CALL LIGHT WITHIN REACH.
--- NOTE | 2019-01-17 17:33 | NUR ---
PATIENT RESTING IN BED COMFORTABLY, NO ACUTE DISTRESS NOTED. PATIENT DENIES PAIN. PATIENT RECEIVED DINNER TRAY, ENCOURAGED PATIENT TO EAT, PATIENT STATED SHE WILL TRY. DENIES N/V. NO ACUTE CHANGES NOTED. IV TO LFA SALINE LOCK, PPN INFUSING TO RFA AT 80ML/HR, IV SITES X2 CDI&PATENT, NO S/S OF INFILTRATION. CALL LIGHT WITHIN REACHED, BED IN LOW POSITION, WILL CONTINUE TO MONITOR & ENDORSE REPORT.
[2019-01-17 17:35] VITALS: BP 102/63
--- NOTE | 2019-01-17 19:43 | NUR ---
RECEIVED PATIENT IN BED AWAKE, ALERT AND ORIENTED WITH NO C/O ABDOMINAL DISCOMFORT THIS TIME. ABDOMEN SOFT AND NONTENDER WITH ACTIVE BS. RESPIRATION EVEN AND NONLABOR WITH CLEAR BS SATTING AT 98% RA. IV TO RFA INTACT AND INFUSING WELL WITH PPN AT 80ML/HR. WILL CONTINUE TO MONITOR. CALL LIGHT WITHIN REACH.
[2019-01-17 21:40] VITALS: BP 108/67
--- NOTE | 2019-01-17 23:54 | NUR ---
APPEAR TO BE SLEEPING THIS TIME BREATHING EASY AND NONLABOR.
[2019-01-18 04:39] VITALS: BP 100/70
--- NOTE | 2019-01-18 05:08 | NUR ---
SLEPT AT LONG INTERVALS, DENIES PAIN AND DISCOMFORT THE ENTIRE SHIFT. ALL NEEDS ATTENDED.
[2019-01-18 06:23] LABS: BASOPHIL % 0.5 % (0-2); PLATELET COUNT 286 x10^3mcL (130-400)
[2019-01-18 06:35] LABS: CALCIUM 8.1 mg/dL (8.5-10.1); CARBON DIOXIDE 27.3 mmol/L (21-32); CHLORIDE SERUM 105 mmol/L (98-107); CREATININE SERUM 0.2 mg/dL (0.6-1.0); GFR1 > 60 mL/min; GLUCOSE SERUM 121 mg/dL (74-106); MAGNESIUM 2.5 mg/dL (1.8-2.4); POTASSIUM SERUM 4.4 mmol/L (3.5-5.1); SODIUM SERUM 139 mmol/L (136-145)
[2019-01-18 07:05] LABS: ALBUMIN 2.6 g/dL (3.4-5.0)
--- NOTE | 2019-01-18 07:20 | NUR ---
RECEIVED PT FROM NIGHT NURSE. PT IS LAYING DOWN IN BED WITH HOB UP RESTING. PT LOOKS TO BE IN NO ACUTE DISTRESS AND DENIES ANY PAIN AT THIS TIME. IV SITE PATENT WITH NO SIGNS OF ERYTHEMA OR SWELLING WITH PPN INFUSING. CALL LIGHT WITHIN REACH. WILL CONTINUE TO MONITOR.
[2019-01-18 07:24] LABS: RED CELL DISTRIBUTION WIDTH 28.5 % (11.5-14.5)
[2019-01-18 09:41] VITALS: BP 118/82
[2019-01-18 09:52] LABS: rbc morphology (normal/abnorm) ABNORMAL (NORMAL)
--- NOTE | 2019-01-18 12:30 | NUR ---
PT IS SITTING UP IN BED STARTING TO EAT. PT LOOKS TO BE IN NO ACUTE DISTRESS AT THIS TIME AND DENIES ANY PAIN. IV SITE PATENT WITH NO SIGNS OF ERYTHEMA OR SWELLING WITH PPN INFUSING. CALL LIGHT WITHIN REACH. WILL CONTINUE TO MONITOR.
--- NOTE | 2019-01-18 17:15 | NUR ---
PT COMPLAINING OF PAIN AND DISCOMFORT TO BOTH IV SITES. BOTH IVS FLUSHING FREELY, IV TO RIGHT FOREARM HAS SWELLING, NO SWELLING NOTED TO LEFT FOREARM. PT REQUESTING TO HAVE NEW IV. 2 NEW IV TO LEFT FOREARM ARE PATENT AND FLUSHING FREELY WITH NO SIGNS OF ERYTHEMA OR SWELLING. WILL CONTINUE TO MONITOR.
[2019-01-18 17:28] VITALS: BP 119/76
--- NOTE | 2019-01-18 18:50 | NUR ---
PT IS LAYING DOWN IN BED WITH HOB UP RESTING. PT LOOKS TO BE IN NO ACUTE DISTRESS AT THIS TIME. RESPIRATIONS EVEN AND UNLABORED ON ROOM AIR. 2 IV SITES TO RIGHT FOREARM ARE PATENT WITH NO SIGNS OF ERYTHEMA OR SWELLING WITH PPN IN FUSING TO ONE AND THE OTHER IS H/L. CALL LIGHT WITHIN REACH. WILL ENDORSE TO ONCOMING SHIFT.
[2019-01-18 19:10] VITALS: BP 121/71
--- NOTE | 2019-01-18 19:10 | NUR ---
RECEIVED PT ASLEEP BUT EASILY AROUSABLE.DENIES ANY PAIN AT THIS TIME.JUST MEDICATED BY AM NURSE WITH MORPHINE AND VERBALIZED RELIEF.DINNER TRAY REMAINS AT BEDSIDE UNTOUCHED.ENCOURAGEMENT PROVIDED.ON PPN @ 80 ML/HR.BP 121/71 MMHG,HR 113.WILL CONTINUE TO MONITOR.
--- NOTE | 2019-01-19 04:51 | NUR ---
PT SLEPT WELL ALL NIGHT.MEDICATED WITH MORPHINE 1 MG IVP X1 FOR ABDOMINAL PAIN WITH GOOD RELIEF.PPN @ 80 ML/HR INFUSING WELL.USES BSC NEEDED.ALL NEEDS MET.WILL CONTINUE TO MONITOR.
[2019-01-19 06:05] VITALS: BP 113/69
[2019-01-19 06:50] LABS: BASOPHIL % 0.1 % (0-2); PLATELET COUNT 256 x10^3mcL (130-400)
[2019-01-19 06:54] LABS: RED CELL DISTRIBUTION WIDTH 29.1 % (11.5-14.5)
[2019-01-19 07:06] LABS: CALCIUM 7.8 mg/dL (8.5-10.1); CHLORIDE SERUM 103 mmol/L (98-107); CREATININE SERUM 0.4 mg/dL (0.6-1.0); GFR1 > 60 mL/min; GLUCOSE SERUM 143 mg/dL (74-106); PHOSPHOROUS 3.4 mg/dL (2.5-4.9); POTASSIUM SERUM 4.3 mmol/L (3.5-5.1); SODIUM SERUM 137 mmol/L (136-145)
--- NOTE | 2019-01-19 07:15 | NUR ---
RECEIVED PT RESTING IN BED. AAOX4. BREATHING EVEN AND UNLABORED ON RA. POOR APPETITE, ENCOURAGED PT TO EAT BREAKFAST. PPN INFUSING WITH NO REDNESS OR SWELLING TO IV SITE. GEN WEAKNESS. BED IN LOW POSITION, CALL LIGHT WITHIN REACH. WILL CONTINUE TO MONITOR.
--- NOTE | 2019-01-19 08:13 | NUR ---
PT OBSERVED EATING SOME CEREAL FROM BREAKFAST TRAY AT THIS TIME.
[2019-01-19 09:28] VITALS: BP 110/85
[2019-01-19 10:15] LABS: rbc morphology (normal/abnorm) ABNORMAL (NORMAL)
--- NOTE | 2019-01-19 11:41 | NUR ---
PT RESTING IN BED ON HER PHONE. NO ACUTE DISTRESS. RESP EVEN AND UNLABORED ON RA. NO C/O PAIN AT THIS TIME. IVS TO RFA WITH NO REDNESS OR SWELLING. FALL PRECAUTIONS. BELONGINGS WITHIN REACH. WILL CONTINUE TO MONITOR.
--- NOTE | 2019-01-19 13:08 | NUR ---
Follow-up Nutrition Assessment: 216/B PATTI CARRANZA FU HR Dx: Anemia, failure to thrive PMHx: Anorexia nervosa, Anemia, Depression Labs: (01/19) BG 143H, CREAT 0.4L, ALB 2.6L, CA 7.8L, HGB 11.6L Meds: Ativan, D 10%, folic acid, Humulin, morphine, Remeron, zofran Diet: TPN D 10%, AA 4.25% @ 80 ml/hr, volume 2000 ml PO Intake: (01/18) breakfast 100%, (01/17) dinner 20%, lunch, breakfast 0% (01/16) dinner 30%, lunch 20%, breakfast 40% Weights: (01/17) 27.2 kg, (01/19) 23 kg (likely error in bed scale) I/Os: (01/18) 2210/ output not documented Skin: intact Hay: 18 Edema: none GI: poor appetite Last BM: 01/18 RD Note (01/19): Patient is severely malnourished and emaciated, continues to refuse G tube. Patient said that she does not have any N/V at the moment. Per Dr. Ramirez, EGD colonoscopy does not show any pathology and he says that her condition is due to psycho-social issue. I asked patient again about her food preferences and tried to encourage PO but patient does not want to eat. Per progress note (01/18), Patient continues on TPN and has received blood transfusion. EGD Colonoscopy performed by Dr. Ramirez yesterday and negative. H-Pylori negative. Biopsy pending from EGD. Patient continues to not eat. Patient acknowledges she needs to eat but can't. Estimated Nutritional Needs Based on current body weight (27.2 kg) Energy: 3283-5319 kcal/day (37-40 kcal/kg for gradual weight gain) Protein: 33-38 g/day (1.2-1.4 g/kg for gradual protein repletion) Fluid: 9610-9788 mL/day (1 mL/kcal) Nutrition Diagnosis: 1.Malnutrition related to anorexia nervosa as evidenced by BMI 10.7 kg/m2 (ongoing) Intervention: 1. Recommend continuing PPN D 10%, AA 4.25% @ 80 ml/hr. This provides 980 kcal and 80g protein. 2. Recommend continuing regular diet. Will continue to monitor. Monitor/Evaluate: Goal: Have pt meet at least 75% of estimated needs Monitor: PO intake, Labs, GI function F/U in 2-3 days as high risk
[2019-01-19 17:15] VITALS: BP 90/58
--- NOTE | 2019-01-19 17:40 | NUR ---
PT WITH TEMP 100.1. PT WITH 2 BLANKETS AND REFUSED COOLING MEASURES AT THIS TIME.
--- NOTE | 2019-01-19 18:45 | NUR ---
PT RESTING IN BED. SLEEPING BUT AROUSABLE. DINNER TRAY UNTOUCHED. POOR APPETITE. IVS TO RFA, NO REDNESS OR SWELLING NOTED. GEN WEAKNESS. BSC WITHIN REACH. BELONGINGS WITH PT. FALL PRECAUTIONS. BED IN LOW POSITION, CALL LIGHT WITHIN REACH. WILL ENDORSE TO ONCOMING SHIFT.
--- NOTE | 2019-01-19 19:10 | NUR ---
REPORT RECEIVED FROM DAY SHIFT RN. PATIENT WAS SEEN RESTING COMFORTABLY IN BED EATING DINNER TRAY. NO DISTRESS NOTED. BREATHING EVEN AND UNLABORED ON ROOM AIR. NO SOB OR RESP DISTRESS NOTED. DENIES CHEST PAIN/PRESSURE. C/O 5/10 ABD PAIN. TOELRABLE AT THIS TIME. NOT REQUESTING PAIN MEDS. COMFORT AND SAFETY MEASURES IN PLACE. BED IS LOCKED AND IN THE LOWEST POSITION. SIDE RAILS UP X2. CALL LIGHT IS WITHIN REACH. WILL CONTINUE TO MONITOR.
--- NOTE | 2019-01-19 19:50 | NUR ---
PATIENT IS DONE EATING DINNER TRAY. PATIENT ATE 3/4 OF POTATO AND DRANK 3/4 OF STRAWBERRY ENSURE.
[2019-01-19 21:01] VITALS: BP 99/66
--- NOTE | 2019-01-19 21:20 | NUR ---
C/O 10/10 ABD PAIN. REPORTS IT IS A SHARP PAIN. PRN MORPHINE IVP WAS ADMINISTERED PRESCRIBED. MED EDUCATION GIVEN. NO DISTRESS NOTED. SAFETY MEASURES IN PLACE. CALL LIGHT IS WITHIN REACH. WILL CONTINUE TO MONITOR.
--- NOTE | 2019-01-20 01:12 | NUR ---
PATIENT RESTING IN BED W/ EYES CLOSED. NO DISTRESS NOTED. BREATHING EVEN AND UNLABORED ON ROOM AIR. NO SOB NOTED. EVEN CHEST RISE AND FALL. SAFETY MEASURES IN PLACE. CALL LIGHT IS WITHIN REACH. WILL CONTINUE TO MONITOR.
[2019-01-20 05:26] VITALS: BP 90/58
--- NOTE | 2019-01-20 06:00 | NUR ---
RESTED IN LONG INTERVALS THROUGHOUT THE NIGHT. NO ACUTE CHANGES NOTED. NO DISTRESS NOTED. BREATHING EVEN AND UNLABORED ON ROOM AIR. NO SOB NOTED. DENIES CHEST PAIN. C/O PAIN X1. GAVE MORPHINE X1 WITH GOOD RELIEF. IVS TO RFA X2. SALINE LOCK AT THIS TIME. PATENT AND INTACT. NO REDNESS OR SWELLING NOTED. ALL NEEDS AND CONCERNS ADDRESSED. SAFETY MEASURES IN PLACE. CALL LIGHT IS WITHIN REACH. WILL ENDORSE CARE TO DAY SHIFT RN.
[2019-01-20 06:56] LABS: BASOPHIL % 0.2 % (0-2); PLATELET COUNT 251 x10^3mcL (130-400)
[2019-01-20 07:11] LABS: RED CELL DISTRIBUTION WIDTH 30.3 % (11.5-14.5)
[2019-01-20 07:12] LABS: rbc morphology (normal/abnorm) ABNORMAL (NORMAL)
--- NOTE | 2019-01-20 07:15 | NUR ---
RECIEVED REPORT FROM TUNNEL INSPECTOR NURSE PT LYING IN BED ASLEEP BUT AROUSABLE. 2 IV RFA PATENT AND INTACT NO REDNESS OR EDEMA NOTED. A&O X4, DENIES N/V OR PAIN AT THIS TIME. LUNGS CTA BILAT 96% ON RA, ALL NEEDS ATTENDED TO AT THIS TIME. BED IN LOW POSITION CALL LIGHT WITHIN REACH. WILL CONTINUE TO MONITOR.
--- NOTE | 2019-01-20 08:29 | NUR ---
ADMINISTERED SCHEDULED MEDS PER MAY. NO ADVERSE REACTIONS NOTED. PT LYING IN BED IN NO APARENT DISTRESS. ALL QUESTIONS AND CONCERNS ADDRESSED AT THIS TIME. WILL CONTINUE TO MONITOR.
[2019-01-20 08:59] VITALS: BP 100/64
--- NOTE | 2019-01-20 09:32 | NUR ---
PT C/O 01/05 ABD PAIN ADMINISTERED MORPHINE PER MAY. BP 100/64. WILL REASSES. ALL NEEDS ATTENDED TO AT THIS TIME. WILL CONTINUE TO MONITOR.
[2019-01-20 09:44] LABS: CALCIUM 8.2 mg/dL (8.5-10.1); CARBON DIOXIDE 25.3 mmol/L (21-32); CHLORIDE SERUM 106 mmol/L (98-107); CREATININE SERUM 0.5 mg/dL (0.6-1.0); GFR1 > 60 mL/min; GLUCOSE SERUM 67 mg/dL (74-106); POTASSIUM SERUM 4.6 mmol/L (3.5-5.1); SODIUM SERUM 141 mmol/L (136-145)
--- NOTE | 2019-01-20 10:00 | NUR ---
PATIENT IN BED ASLEEP IN NO APARENT DISTRESS. ALL NEEDS ATTENDED TO AT THIS TIME. WILL CONTINUE TO MONITOR.
--- NOTE | 2019-01-20 11:38 | NUR ---
PT NOTIFIED OF DR GISSEL FOR D/C . PT VERBALIZED UNDERSTANDING. PT STATED SHE WILL HAVE A RIDE AT 1700. ADMINISTERED SCHEDULED MED PER MAR. NO ADVERSE AFFECTS NOTED. ALL NEEDS ATTENDED TO AT THIS TIME. WILL CONTINUE TO MONITOR.
--- NOTE | 2019-01-20 13:00 | NUR ---
PATIENT SITTING UP IN BED WITH LUNCH. PT TOLERATED ENSURE DRINK. DID NOT EAT THE REST OF LUNCH. PT DENIES PAIN OR N/V AT THIS TIME. ALL QUESTIONS AND CONCERNS ADDRESSED AT THIS TIME. WILL CONTINUE TO MONITOR.
[2019-01-20 14:20] VITALS: BP 104/62
--- NOTE | 2019-01-20 15:45 | NUR ---
PATIENT LYING IN BED ASLLEP IN NO APARENT DISTRESS. ALL NEEDS MET AT THIS TIME. BED IN LOW POSITION CALL LIGHT WITHIN REACH. DENITA CONTINUE TO MONITOR.
[2019-01-20 16:20] VITALS: BP 104/62
--- NOTE | 2019-01-20 16:28 | NUR ---
PT C/O PAIN IN ABD ADMINISTERED MORPINE PER MAY FOR SEVERE PAIN . WILL REASSESS. PT HAD LOW GRADE FEVER OF 100.2 TYMPANICALLY ADMINISTERED TYLENOL PER MAY FOR FEVER OVER 100. WILL CONTINUE TO MONITOR. ICE PACKS GIVEN TO PT. ALL NEEDS ATTENDED TO AT THIS TIME.
--- NOTE | 2019-01-20 16:28 | NUR ---
PT C/O 01/05 ABD PAIN ADMINISTERED MORPHINE PER MAY. PT HAD 102.0 TYMPANIC TEMP 98.7 ORAL. ADMINISTERED TYLENOL FOR 102.0 PER MAY. WILL REASSES AND CONTINUE TO MONITOR.PT LYIN IN BED WITH ICE PACKS APPLIED. CALL LIGHT WITHIN REACH. ALL NEEDS ATTENDED TO AT THIS TIME.
--- NOTE | 2019-01-20 17:00 | NUR ---
PT REPORTED DECREASE IN PAIN FROM 10-3/10. ALL NEEDS ATTENDED TO AT THIS TIME . CALL LIGHT WITHIN REACH WILL CONTINUE TO MONITOR.
[2019-01-20 17:25] VITALS: BP 104/62
--- NOTE | 2019-01-20 18:35 | NUR ---
PT D/C WITH FAMILY, IV D/C'D CATHETER INTACT AND APPLIED DRESSING. ALL BELONGINGS WITH PT AND FAMILY. PT STABLE DENIES ANY PAIN. REINFORCED D/C TEACHING PT VERBALIZED UNDERSTANDING. ALL QUESTIONS AND CONCERNS ADDRESSED AT THIS TIME. COMMUNICATION TECHNICIAN WILL ESCORT VIA WHEEL CHAIR.
== END 2019-01-20 18:50 | disposition home health service (06) | DRG 244 ==
LOC: ED 21:47 → DU 01-15 00:29 → MU 01-15 00:29 → DU 01-15 02:15 → MU 01-17 10:22
PROVIDERS: Emergency Medicine; General Practice; Internal Medicine Gastroenterology; ADMIT Internal Medicine
PROC: 0DB68ZX Excision of Stomach, Via Natural or Artificial Opening Endoscopic, Diagnostic (ICD-10-PCS; principal; 2019-01-17 09:15)
PROC: 0DJD8ZZ Inspection of Lower Intestinal Tract, Via Natural or Artificial Opening Endoscopic (ICD-10-PCS; 2019-01-17 09:15)
DX: K57.91 Diverticulosis of intestine, part unspecified, without perforation or abscess with bleeding (principal); G93.41 Metabolic encephalopathy; E43 Unspecified severe protein-calorie malnutrition; F50.00 Anorexia nervosa, unspecified; D62 Acute posthemorrhagic anemia; E83.51 Hypocalcemia; E87.6 Hypokalemia; F41.8 Other specified anxiety disorders; Z68.1 Body mass index [BMI] 19.9 or less, adult
CPT/HCPCS: 43235; 45378; 82962; C9113; G0378; J1200; J1610; J2060; J2250; J2270; J2310; J2765; J2916; J3010; J3490; J7030; J7040; J7050; J7131; P9016; P9047; Q0163

== ENCOUNTER 2019-01-27 23:15 | Emergency (ER) | payer BC ==
[~2019-01-27] VITALS: Ht 160 cm; Wt 24.9 kg
[2019-01-27 23:28] VITALS: Ht 160 cm; Wt 24.9 kg
[2019-01-28 00:45] LABS: PLATELET COUNT 245 x10^3mcL (130-400); RED CELL DISTRIBUTION WIDTH 32.6 % (11.5-14.5)
[2019-01-28 00:55] LABS: ATYPICAL LYMPH 2 %; BAND NEUTROPHIL 1 % (0-10); MONOCYTE 9 % (0-7); SEGMENTED NEUTROPHILS 35 % (37-75)
[2019-01-28 00:56] LABS: rbc morphology (normal/abnorm) ABNORMAL (NORMAL)
[2019-01-28 00:57] LABS: PLATELET MORPHOLOGY PLATELETS NORMAL
[2019-01-28 01:03] LABS: CALCIUM 7.4 mg/dL (8.5-10.1); CARBON DIOXIDE 25.7 mmol/L (21-32); CHLORIDE SERUM 104 mmol/L (98-107); CREATININE SERUM 0.3 mg/dL (0.6-1.0); GFR1 > 60 mL/min; GLUCOSE SERUM 76 mg/dL (74-106); POTASSIUM SERUM 4.6 mmol/L (3.5-5.1); SODIUM SERUM 136 mmol/L (136-145)
[2019-01-28 01:07] LABS: ALKALINE PHOSPHATASE 168 U/L (46-116); ALT/SGPT 34 U/L (14-59); AMYLASE 40 U/L (25-115); AST/SGOT 46 U/L (15-37); BILIRUBIN TOTAL 0.4 mg/dL (0.20-1.00); LIPASE 144 IU/L (73-393); TOTAL PROTEIN, SERUM 7.4 g/dL (6.4-8.2)
[2019-01-28 01:11] LABS: ALBUMIN 2.5 g/dL (3.4-5.0)
[2019-01-28 10:52] VITALS: BP 105/78
== END 2019-01-28 10:52 | disposition short-term general hospital (02) ==
LOC: ED 23:15
PROVIDERS: Emergency Medicine
DX: K56.7 Ileus, unspecified (principal); R62.51 Failure to thrive (child); F41.9 Anxiety disorder, unspecified; Z98.890 Other specified postprocedural states
CPT/HCPCS: J2405; J2550; J3010; J7030; Q9967

== ENCOUNTER 2019-11-06 07:14 | Emergency (ER) | payer BC ==
[~2019-11-06] VITALS: Ht 160 cm; Wt 28.6 kg
[2019-11-06 07:27] VITALS: Ht 160 cm; Wt 28.6 kg
[2019-11-06 08:28] LABS: microscopic required? YES; urine erythrocyte NEGATIVE (NEGATIVE)
[2019-11-06 09:48] LABS: BASOPHIL % 0.2 % (0-2); PLATELET COUNT 172 x10^3mcL (130-400)
[2019-11-06 09:49] LABS: RED CELL DISTRIBUTION WIDTH 19.5 % (11.5-14.5)
[2019-11-06 10:02] LABS: ALKALINE PHOSPHATASE 153 U/L (46-116); ALT/SGPT 28 U/L (14-59); AST/SGOT 33 U/L (15-37); BILIRUBIN TOTAL 0.2 mg/dL (0.20-1.00); CALCIUM 7.8 mg/dL (8.5-10.1); CARBON DIOXIDE 26.9 mmol/L (21-32); CHLORIDE SERUM 110 mmol/L (98-107); CREATININE SERUM 0.4 mg/dL (0.6-1.0); GFR1 > 60 mL/min; GLUCOSE SERUM 93 mg/dL (74-106); LIPASE 111 IU/L (73-393); POTASSIUM SERUM 3.3 mmol/L (3.5-5.1); SODIUM SERUM 148 mmol/L (136-145); TOTAL PROTEIN, SERUM 6.4 g/dL (6.4-8.2)
[2019-11-06 11:22] VITALS: BP 100/68
== END 2019-11-06 11:22 | disposition home or self-care (01) ==
LOC: ED 07:14
PROVIDERS: Emergency Medicine
DX: N30.00 Acute cystitis without hematuria (principal); D64.9 Anemia, unspecified; G89.29 Other chronic pain
CPT/HCPCS: J0696; J2270; J7030; J7060

== ENCOUNTER 2020-01-24 14:33 | Emergency (ER) | payer BC ==
[~2020-01-24] VITALS: Ht 160 cm; Wt 23.6 kg
[~2020-01-24 14:33] MED LIST changes: +COZAAR100 MG PO; +TOPROL XL100 MG PO
[2020-01-24 14:39] VITALS: Ht 160 cm; Wt 23.6 kg
[2020-01-24 15:32] LABS: BASOPHIL % 0.3 % (0-2); PLATELET COUNT 233 x10^3mcL (130-400)
[2020-01-24 15:33] LABS: RED CELL DISTRIBUTION WIDTH 21.3 % (11.5-14.5)
[2020-01-24 15:43] LABS: rbc morphology (normal/abnorm) ABNORMAL (NORMAL); tear drop cell (dacryocyte) 1+
[2020-01-24 15:49] LABS: CALCIUM 8.1 mg/dL (8.5-10.1); CHLORIDE SERUM 105 mmol/L (98-107); CREATININE SERUM 0.4 mg/dL (0.6-1.0); GFR1 > 60 mL/min; GLUCOSE SERUM 97 mg/dL (74-106); POTASSIUM SERUM 3.2 mmol/L (3.5-5.1); SODIUM SERUM 137 mmol/L (136-145)
[2020-01-24 15:55] LABS: ALKALINE PHOSPHATASE 173 U/L (46-116); ALT/SGPT 55 U/L (14-59); AST/SGOT 29 U/L (15-37); BILIRUBIN TOTAL 0.2 mg/dL (0.20-1.00); LIPASE 125 IU/L (73-393)
[2020-01-24 15:57] LABS: ALBUMIN 1.8 g/dL (3.4-5.0)
[2020-01-24 19:09] VITALS: BP 121/80
== END 2020-01-24 19:09 | disposition home or self-care (01) ==
LOC: ED 14:33
PROVIDERS: Emergency Medicine
DX: E87.6 Hypokalemia (principal); E86.0 Dehydration; K59.00 Constipation, unspecified; R63.0 Anorexia; Z98.890 Other specified postprocedural states
CPT/HCPCS: J7040; Q0092

== ENCOUNTER 2020-02-04 14:02 | Emergency (ER) | payer BC ==
[~2020-02-04] VITALS: Ht 157.5 cm; Wt 54.4 kg
[2020-02-04 14:19] VITALS: Ht 157.5 cm; Wt 54.4 kg
[2020-02-04 14:44] LABS: PLATELET COUNT 227 x10^3mcL (130-400)
[2020-02-04 14:46] LABS: RED CELL DISTRIBUTION WIDTH 23.1 % (11.5-14.5)
[2020-02-04 14:54] LABS: CALCIUM 7.6 mg/dL (8.5-10.1); CARBON DIOXIDE 27.8 mmol/L (21-32); CHLORIDE SERUM 110 mmol/L (98-107); CREATININE SERUM 0.4 mg/dL (0.6-1.0); GFR1 > 60 mL/min; GLUCOSE SERUM 94 mg/dL (74-106); POTASSIUM SERUM 3.3 mmol/L (3.5-5.1); SODIUM SERUM 142 mmol/L (136-145)
[2020-02-04 15:02] LABS: ALKALINE PHOSPHATASE 149 U/L (46-116); ALT/SGPT 45 U/L (14-59); AST/SGOT 26 U/L (15-37); BILIRUBIN TOTAL 0.29 mg/dL (0.20-1.00); LIPASE 54 IU/L (73-393)
[2020-02-04 15:03] LABS: ALBUMIN 1.7 g/dL (3.4-5.0)
[2020-02-04 15:23] LABS: ATYPICAL LYMPH 2 %; BAND NEUTROPHIL 8 % (0-10); METAMYELOCTE 1 % (0-2); MONOCYTE 14 % (0-7); SEGMENTED NEUTROPHILS 46 % (37-75)
[2020-02-04 15:25] LABS: rbc morphology (normal/abnorm) NORMAL (NORMAL)
[2020-02-04 15:26] LABS: PLATELET MORPHOLOGY PLATELETS NORMAL
[2020-02-04 17:41] VITALS: BP 101/70
== END 2020-02-04 19:47 | disposition home or self-care (01) ==
LOC: ED 14:02
PROVIDERS: Emergency Medicine
DX: E86.0 Dehydration (principal); R63.0 Anorexia; G89.29 Other chronic pain; R10.12 Left upper quadrant pain
CPT/HCPCS: J2270; J7030; Q0092

== ENCOUNTER 2020-03-13 19:03 | Emergency (ER) | payer BC ==
[~2020-03-13] VITALS: Ht 160 cm; Wt 26.3 kg
[2020-03-13 19:52] VITALS: Ht 160 cm; Wt 26.3 kg
[2020-03-13 23:37] LABS: BASOPHIL % 0.4 % (0.2-1.3)
[2020-03-13 23:39] LABS: PLATELET COUNT 119 x10^3mcL (179-408); RED CELL DISTRIBUTION WIDTH 24.1 % (12.3-17.7)
[2020-03-13 23:58] LABS: CALCIUM 7.5 mg/dL (8.5-10.1); CARBON DIOXIDE 30.8 mmol/L (21-32); CHLORIDE SERUM 107 mmol/L (98-107); CREATININE SERUM 0.6 mg/dL (0.6-1.0); GFR1 > 60 mL/min; GLUCOSE SERUM 88 mg/dL (74-106); POTASSIUM SERUM 3.4 mmol/L (3.5-5.1); SODIUM SERUM 145 mmol/L (136-145)
[2020-03-14 00:07] LABS: ALKALINE PHOSPHATASE 159 U/L (46-116); ALT/SGPT 30 U/L (14-59); AST/SGOT 25 U/L (15-37); BILIRUBIN TOTAL 0.25 mg/dL (0.20-1.00)
[2020-03-14 00:08] LABS: ALBUMIN 1.3 g/dL (3.4-5.0); TOTAL PROTEIN, SERUM 5.5 g/dL (6.4-8.2)
[2020-03-14 00:30] LABS: rbc morphology (normal/abnorm) ABNORMAL (NORMAL)
[2020-03-14 03:04] VITALS: BP 82/56
== END 2020-03-14 02:45 | disposition home or self-care (01) ==
LOC: ED 19:03
PROVIDERS: Emergency Medicine
DX: R60.9 Edema, unspecified (principal); E88.09 Other disorders of plasma-protein metabolism, not elsewhere classified; G89.29 Other chronic pain; R10.9 Unspecified abdominal pain; Z98.890 Other specified postprocedural states
CPT/HCPCS: 83880; J2270; J2405